=== PATIENT | female | born 1950 | race Caucasian/White ===

== ENCOUNTER 2022-06-14 07:29 | Emergency (ER) | payer MEDICARE, OTHER ==
[~2022-06-14] VITALS: Ht 160 cm; Wt 58.6 kg
[~2022-06-14 07:29] MED LIST: ASPI81TA52 PO; ATOR-2 PO; CETI-90 PO; CHOL400T57 PO; GEMF600T89 PO; MULT-1141 PO; UBID50TA3 PO
[2022-06-14 08:09] VITALS: BP 135/71
[2022-06-14] MEDS ORDERED: AMOX-100 PO (10:46)
== END 2022-06-14 11:01 | disposition home or self-care (01) ==
LOC: ER 07:30
DX: H66.92 Otitis media, unspecified, left ear (principal); Z88.8 Allergy status to other drugs, medicaments and biological substances; Z88.5 Allergy status to narcotic agent; Z79.1 Long term (current) use of non-steroidal anti-inflammatories (NSAID); Z79.82 Long term (current) use of aspirin; Z79.899 Other long term (current) drug therapy
CPT/HCPCS: 99283

== ENCOUNTER 2023-04-27 03:38 | Emergency (ER) | payer MEDICARE, OTHER ==
[~2023-04-27] VITALS: Ht 160 cm; Wt 59.1 kg
[2023-04-27 07:13] VITALS: BP 130/63
--- NOTE | 2023-04-27 08:35 | NUR ---
Dr. Ross at bedside talking to the patient.
[2023-04-27] MEDS ORDERED: oxymetazoline 15 ML nasal spray NS ONE (08:40)
--- NOTE | 2023-04-27 10:07 | NUR ---
Patient left ER without discharge paperworks given to her. Afrin nasal spray was to be given to her when I come back from break but patient left the ER. Publications Manager said she saw the patient left the ER. Before going for my 15 minute break, patient asked me where the restroom was and when I come back she was not in her room anymore. Charge nurse Valeri notified about this
--- NOTE | 2023-04-27 10:33 | NUR ---
Dr. Ross was notified that patient has left the ER. Upon reviewed of the chart, the patient did not have a discharge instruction made yet. I also let Dr. Ross know that patient has not received the Afrin nasal spray as patient has left the ER. Charge nurse Valeri also aware of this.
== END 2023-04-27 11:00 | disposition left against medical advice (07) ==
LOC: ER 03:41
DX: T16.1XXA Foreign body in right ear, initial encounter (principal); X58.XXXA Exposure to other specified factors, initial encounter; Y93.89 Activity, other specified; Y92.89 Other specified places as the place of occurrence of the external cause; Y99.8 Other external cause status
CPT/HCPCS: 99281